=== PATIENT | male | born 1985 | race Caucasian/White ===

== ENCOUNTER 2024-03-06 05:31 | Emergency (ER) | payer OTHER, SELFPAY ==
--- NOTE | ~2024-03-06 | XR_ITS ---
Portable chest x-ray Comparison: None Clinical History: Chest pain Findings: Lungs are clear, without focal consolidation or pleural effusion. Cardiomediastinal silho uette is unremarkable. Bones and soft tissues are unremarkable. Impression: Normal chest. Reviewed, dictated and finalized at location . Impression: Normal chest.
--- NOTE | 2024-03-06 05:33 | ECG_ITS ---
[facility] [address] Test Date: 2024-03-06 Pat Name: Riccardo Woodward Department: Room: Gender: M Eligibility And Occupancy Interviewer: : 1985 Requested By: Aria Reynaga Order Number: [id number] Mohit MD: Alex Rouse M.D. Measurements Intervals [place] Rate: 85 P: 24 RI: 157 QRS: -15 QRSD: 88 T: 11 QT: 353 QTc: 421 Interpretive Statements SINUS RHYTHM POOR R-WAVE PROGRESSION BORDERLINE ECG No previous ECG available for comparison Electronically Signed On 03-06-2024 08:13:50 CDT by Alex Rouse M.D.
[2024-03-06 05:40] VITALS: BP 182/118; PULSE 86; RESP 20; TEMP 36.7; O2SAT 97; O2SAT 99
--- NOTE | 2024-03-06 05:43 | ED.CHESTPAIN ---
HPI - Chest Pain General Chief Complaint: Chest Pain Stated Complaint: chest pain, SOB Time Seen by Provider: 03/06/24 05:34 History of Present Illness HPI narrative: Patient presents here with chest pain that started initially last night with some shortness of breath, he thought that was just in digestion and this morning while going to get ready for work he had another episode. He slightly anxious and states that he has been stressed, denies any personal history of any medical issues, including hypertension, but does state that he has strong family history of heart disease, with his father side having multiple with heart attacks in their 50s and his mother side being even younger. No focal numbness or weakness Related Data Allergies Allergy/AdvReac Type Severity Reaction Status Date / Time No Known Allergies Allergy Verified 03/06/24 05:45 Review of Systems Review of Systems: All systems reviewed & are unremarkable except as noted in HPI and below Exam Narrative: EXAMINATION OF ORGAN SYSTEMS/BODY AREAS: Constitutional: Vital signs per nursing GENERAL:[No acute distress, non-toxic appearing.] HEAD: Normal with no signs of head trauma. EYES: EOMI, conjunctiva normal ENT: Hearing grossly intact LUNGS: Nonlabored breathing. Clear to auscultation bilaterally HEART: [Regular rate and rhythm] ABD: [Soft], [nontender to palpation] EXT: Normal range of motion SKIN: [No rashes or lesions.] NEURO: [Alert and oriented x 3. No gross focal sensory or strength deficits.] PSYCH: Slightly anxious affect Course Vital Signs Vital signs: Vital Signs Temperature 98.1 F 03/06/24 05:40 Pulse Rate 86 03/06/24 05:40 Respiratory Rate 20 03/06/24 05:40 Blood Pressure 182/118 H 03/06/24 05:40 Pulse Oximetry 97 03/06/24 05:40 Oxygen Delivery Room Air 03/06/24 05:40 Temperature 98.1 F 03/06/24 05:40 Pulse Rate 86 03/06/24 05:40 Respiratory Rate 20 03/06/24 05:40 Blood Pressure 182/118 H 03/06/24 05:40 Pulse Oximetry 100 03/06/24 05:46 Oxygen Delivery Room Air 03/06/24 05:46 MDM - Chest Pain MDM Narrative Medical decision making narrative: ED COURSE AND MEDICAL DECISION MAKIN-year-old male presenting with chest pain. EKG done in triage negative for acute ischemic changes. Cardiac workup is initiated. EKG: Performed in triage and interpreted by me. Normal sinus rhythm. Rate 85. Normal axis. AL normal. QRS duration normal. QTc normal. No pathologic Q waves. No ST segment elevation or depression to suggest acute ischemia. No RV strain pattern. HEART score is 0 with no acute ischemic changes on EKG and negative troponin making ACS unlikely. Neegative PERC making PE unlikely. Presentation not consistent with dissection or aneurysm without radiation of pain or pulse deficits. CXR negative for mediastinal widening. No abdominal pain or signs of sepsis that would be concerning for esophageal perforation or mediastinitis. No cardiomegaly or JVD to suggest pericardial effusion/tamponade. His blood pressure was slightly elevated while he was here, although he has never seen a doctor for this, I feel this could be due to anxiety from being in the hospital, however I did let the patient know that he needs to follow up with primary care doctor should get this checked again and if it continues to be persistently high, that he will need to be started on blood pressure medications. Patient agreeable to this plan. On repeat evaluation just prior to discharge, the patient is no acute distress. I had a long discussion with the patient and with shared decision making, [he] is comfortable with outpatient management. [He] was given clear return instructions by myself in person as well as on discharge paperwork. Procedures: Pulse oximetry interpretation - not hypoxic. EKG interpretation. Review of medical records. Lab Data 03/06/24 05:47 03/06/24 05:47 Labs: Lab Results
[2024-03-06 05:44] VITALS: BP 182/118; PULSE 91; RESP 16; O2SAT 99
[2024-03-06 05:46] VITALS: O2SAT 100
[2024-03-06 05:57] LABS: Basophils Absolute Auto 0.1 K/mm3 (0.0-0.1); Basophils Percent Auto 0.9 % (0.2-1.2); Eosinophils Absolute Auto 0.3 K/mm3 (0-0.3); Eosinophils Percent Auto 3.3 % (0-4.4); Hematocrit 46.7 % (42.0-52.0); Hemoglobin 16.6 g/dL (14.0-18.0); Immature Granulocyte Absolute 0.02 K/mm3 (0.00-0.031); Immature Granulocyte Percent A 0.3 % (0-0.5); Lymphocytes Absolute Auto 2.03 K/mm3 (0.9-3.2); Lymphocytes Percent Auto 27.2 % (18.3-44.2); Mean Corpuscular HGB Conc 35.5 g/dl (32-36); Mean Corpuscular Hemoglobin 29.5 pg (26-34); Mean Corpuscular Volume 83.1 fl (80-100); Mean Platelet Volume 11.2 fl (7.4-10.4); Monocytes Absolute Auto 0.6 K/mm3 (0.1-0.6); Monocytes Percent Auto 8.6 % (2.6-8.5); Neutrophils Absolute Auto 4.5 K/mm3 (1.3-6.7); Neutrophils Percent Auto 59.7 % (45.5-73.1); Platelet Count Result 243 k/mm3 (150-375); Red Blood Count 5.62 M/mm3 (4.6-6.20); White Blood Count 7.5 K/mm3 (4.5-10.0)
[2024-03-06 06:02] VITALS: BP 156/104; PULSE 74; RESP 17; O2SAT 97
[2024-03-06 06:06] LABS: Alanine Aminotransferase 29 U/L (6-50); Albumin Level 4.5 g/dL (3.5-5.1); Alkaline Phosphatase 76 U/L (38-126); Anion Gap 9 mmol/L (4-12); Aspartate Amino Transferase 24 U/L (17-59); Bilirubin,Total 0.8 mg/dL (0.2-1.3); Blood Urea Nitrogen 14 mg/dL (9-20); Carbon Dioxide 24 mmol/L (22-30); Chloride 103 mmol/L (98-107); Estimated CRCL calculation 145 ml/min; Estimated Glomerular Filt Rate > 60; Glucose 328 mg/dL (65-110); Potassium 3.8 mmol/L (3.4-5.0); Sodium 136 mmol/L (137-145)
[2024-03-06 06:17] VITALS: BP 151/104; PULSE 76; RESP 21; O2SAT 98
[2024-03-06 06:17] LABS: Troponin I < 0.012 ng/mL (0.000-0.034)
[2024-03-06 06:32] VITALS: BP 161/102; PULSE 66; RESP 16; O2SAT 99
== END 2024-03-06 06:39 | disposition home or self-care (01) ==
PROVIDERS: Emergency Provider Emergency Medicine
DX: R07.9 Chest pain, unspecified (principal); R94.31 Abnormal electrocardiogram [ECG] [EKG]
CPT/HCPCS: 36415; 71045; 80053; 84484; 85025; 93005; 99284

== ENCOUNTER 2025-03-05 05:47 | Emergency (ER) | payer SELFPAY ==
[2025-03-05] VITALS (7 sets, daily range): BP systolic 158–162; BP diastolic 101–113; PULSE 91–109; RESP 12–23; TEMP 36.7; O2SAT 97–98
--- NOTE | ~2025-03-05 | CT_ITS ---
CT of the Abdomen and Pelvis: Indication: Abdominal pain Technique: 2.5 mm axial scans were obtained through the abdomen and pelvis following intravenous adm inistration of 100 cc of Omnipaque 350. Dose reduction technique was used on this scan by utilizing a utomated exposure control and iterative reconstruction technique. The dose-length product (DLP) was 1 372.36 mGy-cm. Findings: Scans through the lung bases are unremarkable. The liver, spleen, pancreas, gallbladder, adrenals and kidneys are within normal limits. No evidence of aortic aneurysm. No lymphadenopathy. No bowel obstruction or bowel wall thickening. There is no evidence to suggest acute appendicitis. Images through the pelvis were performed. Urinary bladder unremarkable. No pelvic mass seen. No ascit es. Impression: No significant abnormalities seen. Reviewed, dictated and finalized at [facility]. Impression: No significant abnormalities seen.
--- OUTSIDE RECORDS SUMMARY | 2025-03-05 05:49 | XMS_ITS | Referral Summary ---
Author Organization [facility] Address [address] [place] [id number] Care Team Providers Care Clarity Specialists Name Role Phone No, Physician Primary Care Provider Allergies No known active allergies Social History Tobacco Use Types Packs/Day Years Used Date Smoking Tobacco: Never Assessed Personal Safety Answer Date Recorded Have you ever been in or are you currently in a harmful physical or emotional relationship or is someone making you feel afraid or unsafe? 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 Gender Identity Not on file Sexual Orientation Not on file Last Filed Vital Signs Vital Sign Reading Time Taken Comments Blood Pressure 176/110 11/23/2024 11:05 AM CANAL BOAT CAPTAIN Pulse 72 11/23/2024 11:05 AM CANAL BOAT CAPTAIN Temperature 36.3 C (97.3 F) 11/23/2024 6:42 AM CANAL BOAT CAPTAIN Respiratory Rate 18 11/23/2024 11:0 5 AM CANAL BOAT CAPTAIN Oxygen Saturation 96% 11/23/2024 11: 05 AM CANAL BOAT CAPTAIN Inhaled Oxygen Concentration - - Weight 121.2 kg (267 lb 4.8 oz) 11/23/2024 6:42 AM CANAL BOAT CAPTAIN Height 180.3 cm (5' 11) 11/23/2024 6:42 AM CANAL BOAT CAPTAIN Body Mass Index 37.28 11/23/2024 6:42 AM CANAL BOAT CAPTAIN Plan of Treatment Not on file Insurance WORKERS COMPENSATION GENERIC COMPENSATION [facility] [employer] [address] * Guarantor: [employer] Account Type Relation to Patient Date of Phone Billing Address Workers [employer] [address] [place] [id number] [employer] GENERIC Care Teams Clarity Specialists Relationship Specialty Start Date End Date No, Physician PCP - General 11/23/24
--- OUTSIDE RECORDS SUMMARY | 2025-03-05 05:49 | XMS_ITS | Clinical Summary ---
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 Gender Identity Not on file Sexual Orientation Not on file Last Filed Vital Signs Vital Sign Reading Time Taken Comments Blood Pressure 176/110 11/23/2024 11:05 AM HEAD PASTRY CHEF Pulse 72 11/23/2024 11:05 AM HEAD PASTRY CHEF Temperature 36.3 C (97.3 F) 11/23/2024 6:42 AM HEAD PASTRY CHEF Respiratory Rate 18 11/23/2024 11:0 5 AM HEAD PASTRY CHEF Oxygen Saturation 96% 11/23/2024 11: 05 AM HEAD PASTRY CHEF Inhaled Oxygen Concentration - - Weight 121.2 kg (267 lb 4.8 oz) 11/23/2024 6:42 AM HEAD PASTRY CHEF Height 180.3 cm (5' 11) 11/23/2024 6:42 AM HEAD PASTRY CHEF Body Mass Index 37.28 11/23/2024 6:42 AM HEAD PASTRY CHEF Plan of Treatment Health Maintenance Due Date Last Done Comments Depression Screening 1985 Hepatitis C Screening 1985 DTaP/Tdap/Td Vaccine (1 - Tdap) 1998 Varicella Vaccines (1 of 2 - 13+ 2-dose series) 2000 Hepatitis B Screening 2005 Regular Well Visit/Exam 18-64 2005 Influenza Vaccine (Season Ended) 2025 HPV Vaccines Aged Out No longer eligi ble based on patient's age to complete this topic Pneumococcal vaccine <65 Aged Out No longer eligible based on patient's age to complete this topic Insurance WORKERS COMPENSATION GENERIC COMPENSATION [facility] [employer] [place] [employer] * Guarantor: [employer] Account Type Relation to Patient Date of Phone Billing Address [employer] [address] [place] [address] [employer] Care Teams Information Systems Security Specialist Relationship Specialty Start Date End Date No, Physician PCP - General 11/23/24
[2025-03-05 06:11] LABS: Basophils Absolute Auto 0.1 K/mm3 (0.0-0.1); Basophils Percent Auto 0.7 % (0.2-1.2); Eosinophils Absolute Auto 0.2 K/mm3 (0-0.3); Eosinophils Percent Auto 2.6 % (0-4.4); Hematocrit 47.1 % (42.0-52.0); Hemoglobin 16.3 g/dL (14.0-18.0); Immature Granulocyte Absolute 0.03 K/mm3 (0.00-0.031); Immature Granulocyte Percent A 0.4 % (0-0.5); Lymphocytes Absolute Auto 2.11 K/mm3 (0.9-3.2); Lymphocytes Percent Auto 25.9 % (18.3-44.2); Mean Corpuscular HGB Conc 34.6 g/dl (32-36); Mean Corpuscular Hemoglobin 29.1 pg (26-34); Mean Corpuscular Volume 84.1 fl (80-100); Monocytes Absolute Auto 0.7 K/mm3 (0.1-0.6); Monocytes Percent Auto 8.2 % (2.6-8.5); Neutrophils Absolute Auto 5.1 K/mm3 (1.3-6.7); Neutrophils Percent Auto 62.2 % (45.5-73.1); Platelet Count Result 270 k/mm3 (150-375); Red Cell Distribution Width 12.4 % (11.5-14.5); White Blood Count 8.1 K/mm3 (4.5-10.0)
[2025-03-05 06:19] LABS: Add Urine Microscopic? YES; Appearance Urine Clear (Clear); Bacteria Urine None Seen /hpf; Bilirubin Urine Negative (Negative); Blood Urine Negative (Negative); Color Urine Yellow (Yellow); Glucose Urine UA 3+ mg/dL (Negative); Ketones Urine Negative (Negative); Leukocyte Esterase Ur Negative LEU/UL (Negative); Nitrate Urine Negative (Negative); Non Pathogenic Casts 0-2; Protein Urine 1+ mg/dL (Negative); RBC Urine 0-2 /hpf (0-2); Specific Grav Ur 1.043 (1.001-1.035); Squamous Epithelial Cell Urine None Seen /hpf (Few); Urobilinogen Urine 0.2 mg/dL (<2.0); WBC Urine 0-5 /hpf (0-3); pH Urine 5.5 (5.0-9.0)
[2025-03-05 06:24] LABS: Alanine Aminotransferase 24 U/L (6-50); Albumin Level 4.5 g/dL (3.5-5.1); Alkaline Phosphatase 72 U/L (38-126); Anion Gap 10 mmol/L (4-12); Aspartate Amino Transferase 25 U/L (17-59); Bilirubin,Total 0.6 mg/dL (0.2-1.3); Blood Urea Nitrogen 14 mg/dL (9-20); Carbon Dioxide 26 mmol/L (22-30); Chloride 101 mmol/L (98-107); Estimated CRCL calculation 164 ml/min; Estimated Glomerular Filt Rate > 60; Glucose 408 mg/dL (65-110); Lipase 151 U/L (23-300); Potassium 4.1 mmol/L (3.4-5.0); Sodium 137 mmol/L (137-145); Total Protein 7.6 g/dL (6.3-8.2)
--- NOTE | 2025-03-05 06:46 | ED_ITS ---
HPI - Abdominal Pain General Chief Complaint: Abdominal Pain <Nabeel Hassan MD - Last Filed: 03/05/25 07:03> Stated Complaint: fever, vomiting, right abd pain <Nabeel Hassan MD - Last Filed: 03/05/25 07:03> Time Seen by Provider: 03/05/25 06:43 <Nabeel Hassan MD - Last Filed: 03/05/25 07:03> History of Present Illness HPI narrative: Patient is a 39-year-old male who presents to the emergency department this evening complaining of right lower quadrant abdominal pain. Patient states that the pain started on Wednesday and states that for the past 2 days it was constant throughout the day. Patient states that today he finally decided to come in to get evaluated. Patient states that today was the 1st day that he felt some relief of the pain. States that it has dropped to a 3/10. Patient is resting comfortably does not appear to be in distress. Denies any history of kidney stones, states that he still has his appendix. Denies any pain radiation, states that it just stays in the right lower quadrant. Patient admits that he has been having bowel movements. Patient states that he did spike a fever today although he is not febrile in the emergency department. Denies any nausea or vomiting, any constipation or diarrhea. No additional symptoms or concerns at this time. <Nabeel Hassan MD - Last Filed: 03/05/25 07:03> Related Data Allergies/Adverse Reactions: Allergies Allergy/AdvReac Type Severity Reaction Status Date / Time No Known Allergies Allergy Verified 03/05/25 05:57 <Nabeel Hassan MD - Last Filed: 03/05/25 07:03> Review of Systems 2 Review of Systems: All systems are reviewed and are negative unless stated otherwise in the HPI. <Nabeel Hassan MD - Last Filed: 03/05/25 07:03> Exam 2 Narrative: General: Alert, awake, afebrile, in no acute distress. HEENT: PERRL, no rhinorrhea, no post nasal drip, oropharynx clear. Neck: Trachea midline, no JVD, no lymphadenopathy. Cardiovascular: Regular rate and rhythm, no murmurs, rubs or gallops, no peripheral edema. Respiratory: Clear to auscultation bilaterally, no tachypnea, no wheezing, no rhonchi, no rubs, no respiratory distress. Abdomen: Soft, nontender, nondistended, no rebound, no guarding, no peritoneal signs. Musculoskeletal: No joint swelling or deformity, normal muscle tone. Skin: No rashes or petechia, no signs of infection. Psychiatric: Alert and oriented, normal behavior and judgment for situation. Neurological: Alert and oriented to person, place, and time. Follows all commands. No focal deficits, speech is clear and fluent. <Nabeel Hassan MD - Last Filed: 03/05/25 07:03> Course Reevaluation(s) Reevaluation #1: PAtient reports he feels better. His labs are unremarkable other than hyperglycemia. HE has not history of DM . I discussed he will need to start medication and follow up with PCP. I Will start metformin and he was given return precautions. <Minerva Coe MD - Last Filed: 03/05/25 08:03> Date: 03/05/25 <Minerva Coe MD - Last Filed: 03/05/25 08:03> Time: 07:55 <Minerva Coe MD - Last Filed: 03/05/25 08:03> Vital Signs Vital signs: Vital Signs Temperature 98.0 F 03/05/25 05:56 Pulse Rate 109 H 03/05/25 05:56 Respiratory Rate 20 03/05/25 05:56 Blood Pressure 162/113 H 03/05/25 05:56 Pulse Oximetry 97 03/05/25 05:56 Temperature 98.0 F 03/05/25 05:56 Pulse Rate 91 03/05/25 07:00 Respiratory Rate 23 H 03/05/25 07:00 Blood Pressure 162/113 H 03/05/25 05:56 Pulse Oximetry 97 03/05/25 07:00 <Nabeel Hassan MD - Last Filed: 03/05/25 07:03> Vital Signs Temperature 98.0 F 03/05/25 05:56 Pulse Rate 109 H 03/05/25 05:56 Respiratory Rate 20 03/05/25 05:56 Blood Pressure 162/113 H 03/05/25 05:56 Pulse Oximetry 97 03/05/25 05:56 Temperature 98.0 F 03/05/25 05:56 Pulse Rate 91 03/05/25 07:00 Respiratory Rate 23 H 03/05/25 07:00 Blood Pressure 162/113 H 03/05/25 05:56 Pulse Oximetry 97 03/05/25 07:00 <Mienrva Coe MD - Last Filed: 03/05/25 08:03> MDM - Abdominal Pain MDM Narrative Medical decision making narrative: The patient was evaluated by myself in the emergency department. History is obtained from patient who is an independent historian and physical exam was performed. External medical records were reviewed at this time. IV was established and pertinent tests were ordered. Patient was administered 1 L IV fluid bolus with normal saline, 2 mg of IV morphine for pain and 4 mg IV Zofran for nausea. Laboratory results obtained revealing a glucose of 408 otherwise no acute process. Urinalysis unremarkable. Imaging studies obtained included CT abdomen pelvis with IV contrast which is currently pending. Differential diagnosis considerations include appendicitis, diverticulitis, cholecystitis, nephrolithiasis, urinary tract infection. Comorbidities impacting this visit include none. I have evaluated and discussed social determinants of health with the patient that could potentially impact subsequent diagnosis and treatment plans. Patient was signed out to AM ED physician pending CT scan. <Nabeel Hassan MD - Last Filed: 03/05/25 07:03> Lab Data Result diagrams: 03/05/25 06:01 03/05/25 06:01 <Nabeel Hassan MD - Last Filed: 03/05/25 07:03> Labs: Lab Results 03/05/25 Range/Units 06:01 WBC 8.1 (4.5-10.0) K/mm3 RBC 5.60 (4.6-6.20) M/mm3 Hgb 16.3 (14.0-18.0) g/dL Hct 47.1 (42.0-52.0) % MCV 84.1 (80-100) fl MCH 29.1 (26-34) pg MCHC 34.6 (32-36) g/dl RDW 12.4 (11.5-14.5) % Plt Count 270 (150-375) k/mm3 MPV 11.0 H (7.4-10.4) fl Immature Gran % (Auto) 0.4 (0-0.5) % Neut % (Auto) 62.2 (45.5-73.1) % Lymph % (Auto) 25.9 (18.3-44.2) % [place] % (Auto) 8.2 (2.6-8.5) % Eos % (Auto) 2.6 (0-4.4) % Baso % (Auto) 0.7 (0.2-1.2) % Lymph # (Auto) 2.11 (0.9-3.2) K/mm3 [place] # (Auto) 0.7 H (0.1-0.6) K/mm3 Eos # (Auto) 0.2 (0-0.3) K/mm3 Baso # (Auto) 0.1 (0.0-0.1) K/mm3 Abs Immat Gran (auto) 0.03 (0.00-0.031) K/mm3 Absolute Neuts (auto) 5.1 (1.3-6.7) K/mm3 Absolute Nucleated RBC 0.000 (0.0-0.012) K/mm3 Nucleated RBC % 0.0 (0.0-0.2) % Sodium 137 (137-145) mmol/L Potassium 4.1 (3.4-5.0) mmol/L Chloride 101 (98-107) mmol/L Carbon Dioxide 26 (22-30) mmol/L Anion Gap 10 (4-12) mmol/L BUN 14 (9-20) mg/dL Creatinine 0.68 L (0.7-1.3) mg/dL Estim Creat Clear Calc 164 ml/min Estimated GFR > 60 (59 - ) Glucose 408 H (65-110) mg/dL Calcium 9.0 (8.4-10.2) mg/dL Magnesium 2.0 (1.6-2.3) mg/dL Total Bilirubin 0.6 (0.2-1.3) mg/dL AST 25 (17-59) U/L ALT 24 (6-50) U/L Alkaline Phosphatase 72 (38-126) U/L Total Protein 7.6 (6.3-8.2) g/dL Albumin 4.5 (3.5-5.1) g/dL Lipase 151 (23-300) U/L Urine Color Yellow (Yellow) Urine Appearance Clear (Clear) Urine pH 5.5 (5.0-9.0) Ur Specific [place] 1.043 H (1.001-1.035) Urine Protein 1+ H (Negative) mg/dL Urine Glucose (UA) 3+ H (Negative) mg/dL Urine Ketones Negative (Negative) mg/dL Ur Blood (Man) Negative (Negative) Urine Nitrate Negative (Negative) Urine Bilirubin Negative (Negative) Urine Urobilinogen 0.2 (<2.0) mg/dL Leukocyte Esterase Rfl Negative (Negative) TRACIE/UL Urine RBC 0-2 (0-2) /hpf Urine WBC 0-5 (0-3) /hpf Ur Squamous Epith Cells None seen (Few) /hpf Urine Bacteria None seen /hpf Urine Casts 0-2 <Nabeel Hassan MD - Last Filed: 03/05/25 07:03> Lab Results 03/05/25 Range/Units 06:01 WBC 8.1 (4.5-10.0) K/mm3 RBC 5.60 (4.6-6.20) M/mm3 Hgb 16.3 (14.0-18.0) g/dL Hct 47.1 (42.0-52.0) % MCV 84.1 (80-100) fl MCH 29.1 (26-34) pg MCHC 34.6 (32-36) g/dl RDW 12.4 (11.5-14.5) % Plt Count 270 (150-375) k/mm3 MPV 11.0 H (7.4-10.4) fl Immature Gran % (Auto) 0.4 (0-0.5) % Neut % (Auto) 62.2 (45.5-73.1) % Lymph % (Auto) 25.9 (18.3-44.2) % [place] % (Auto) 8.2 (2.6-8.5) % Eos % (Auto) 2.6 (0-4.4) % Baso % (Auto) 0.7 (0.2-1.2) % Lymph # (Auto) 2.11 (0.9-3.2) K/mm3 [place] # (Auto) 0.7 H (0.1-0.6) K/mm3 Eos # (Auto) 0.2 (0-0.3) K/mm3 Baso # (Auto) 0.1 (0.0-0.1) K/mm3 Abs Immat Gran (auto) 0.03 (0.00-0.031) K/mm3 Absolute Neuts (auto) 5.1 (1.3-6.7) K/mm3 Absolute Nucleated RBC 0.000 (0.0-0.012) K/mm3 Nucleated RBC % 0.0 (0.0-0.2) % Sodium 137 (137-145) mmol/L Potassium 4.1 (3.4-5.0) mmol/L Chloride 101 (98-107) mmol/L Carbon Dioxide 26 (22-30) mmol/L Anion Gap 10 (4-12) mmol/L BUN 14 (9-20) mg/dL Creatinine 0.68 L (0.7-1.3) mg/dL Estim Creat Clear Calc 164 ml/min Estimated GFR > 60 (59 - ) Glucose 408 H (65-110) mg/dL Calcium 9.0 (8.4-10.2) mg/dL Magnesium 2.0 (1.6-2.3) mg/dL Total Bilirubin 0.6 (0.2-1.3) mg/dL AST 25 (17-59) U/L ALT 24 (6-50) U/L Alkaline Phosphatase 72 (38-126) U/L Total Protein 7.6 (6.3-8.2) g/dL Albumin 4.5 (3.5-5.1) g/dL Lipase 151 (23-300) U/L Urine Color Yellow (Yellow) Urine Appearance Clear (Clear) Urine pH 5.5 (5.0-9.0) Ur Specific [place] 1.043 H (1.001-1.035) Urine Protein 1+ H (Negative) mg/dL Urine Glucose (UA) 3+ H (Negative) mg/dL Urine Ketones Negative (Negative) mg/dL Ur Blood (Man) Negative (Negative) Urine Nitrate Negative (Negative) Urine Bilirubin Negative (Negative) Urine Urobilinogen 0.2 (<2.0) mg/dL Leukocyte Esterase Rfl Negative (Negative) TRACIE/UL Urine RBC 0-2 (0-2) /hpf Urine WBC 0-5 (0-3) /hpf Ur Squamous Epith Cells None seen (Few) /hpf Urine Bacteria None seen /hpf Urine Casts 0-2 <Minerva Coe MD - Last Filed: 03/05/25 08:03> Imaging Data Radiologist's impression: ITS Impressions Abdomen/Pelvis CT 03/05/25 07:36 Impression: No significant abnormalities seen. <Nabeel Hassan MD - Last Filed: 03/05/25 07:03> ITS Impressions Abdomen/Pelvis CT 03/05/25 07:36 Impression: No significant abnormalities seen. <Minerva Coe MD - Last Filed: 03/05/25 08:03> Discharge Plan Discharge Clinical Impression: Abdominal pain, RLQ, Hyperglycemia <Nabeel Hassan MD - Last Filed: 03/05/25 07:03> Patient Disposition: Home <Nabeel Hassan MD - Last Filed: 03/05/25 07:03> Condition: Improved <Nabeel Hassan MD - Last Filed: 03/05/25 07:03> Instructions: Antibiotic Form, Acute Abdominal Pain (ED), Diabetic Hyperglycemia (ED) <Nabeel Hassan MD - Last Filed: 03/05/25 07:03> Additional Instructions: Today you were found to have elevated blood sugar. Please watch your diet. I recommend that you get established with primary care provider as soon as possible. If your symptoms worsen return to ER <Nabeel Hassan MD - Last Filed: 03/05/25 07:03> Patient Language: Bahraini <Nabeel Hassan MD - Last Filed: 03/05/25 07:03> Prescriptions: New metformin 500 mg tablet 500 mg PO BID Qty: 30 0RF ondansetron 4 mg tablet,disintegrating 4 mg PO Q8H PRN (Reason: nausea and vomiting) Qty: 10 0RF <Nabeel Hassan MD - Last Filed: 03/05/25 07:03> Follow-up/Referrals: Vinh Allen MD [Physician] - PHYSICIAN,METALIZING MACHINE OPERATOR [Primary Care Provider] - <Nabeel Hassan MD - Last Filed: 03/05/25 07:03> Time of Disposition: 06:57 <Nabeel Hassan MD - Last Filed: 03/05/25 07:03> 06:57 <Minerva Coe MD - Last Filed: 03/05/25 08:03>
[2025-03-05] MEDS: SODIUM CHLORIDE 0.9% IV 1,000 ML 999 ML IV CONT (06:55)
--- OUTSIDE RECORDS SUMMARY | 2025-03-05 07:04 | XMS_ITS | Clinical Summary ---
Author Organization [facility] Address [address] [place] [phone] Care Team Providers Care Train Engineer Name Role Phone No, Physician Primary Care Provider [phone] Allergies No known active allergies Social History [...] on file Legal Sex Male 4:27 PM LEAD DATA ARCHITECT Gender Identity Not on file Sexual Orientation Not on file Last Filed Vital Signs Vital Sign Reading Time Taken Comments Blood Pressure 176/110 11/23/2024 11:05 AM LEAD DATA ARCHITECT Pulse 72 11/23/2024 11:05 AM LEAD DATA ARCHITECT Temperature 36.3 C (97.3 F) 11/23/2024 6:42 AM LEAD DATA ARCHITECT Respiratory Rate 18 11/23/2024 11:0 5 AM LEAD DATA ARCHITECT Oxygen Saturation 96% 11/23/2024 11: 05 AM LEAD DATA ARCHITECT Inhaled Oxygen Concentration - - Weight 121.2 kg (267 lb 4.8 oz) 11/23/2024 6:42 AM LEAD DATA ARCHITECT Height 180.3 cm (5' 11) 11/23/2024 6:42 AM LEAD DATA ARCHITECT Body Mass Index 37.28 11/23/2024 6:42 AM LEAD DATA ARCHITECT Plan of Treatment Health Maintenance Due Date [...] this topic Insurance WORKERS COMPENSATION GENERIC COMPENSATION [facility] [employer] [place] [employer] * Guarantor: [employer] Account Type Relation to Patient Date of Phone Billing Address [employer] [address] [place] [address] WORKERS [employer] GENERIC Care Teams Train Engineer Relationship Specialty Start Date End Date No, Physician PCP - General 11/23/24
--- OUTSIDE RECORDS SUMMARY | 2025-03-05 07:04 | XMS_ITS | Referral Summary ---
Author Organization [facility] Address [address] [place] [phone] Care Team Providers Care Cardiac Cath Tech Name Role Phone No, Physician Primary Care Provider [phone] Allergies No known active allergies Social History [...] on file Legal Sex Male 4:27 PM GEM TECHNICIAN Gender Identity Not on file Sexual Orientation Not on file Last Filed Vital Signs Vital Sign Reading Time Taken Comments Blood Pressure 176/110 11/23/2024 11:05 AM GEM TECHNICIAN Pulse 72 11/23/2024 11:05 AM GEM TECHNICIAN Temperature 36.3 C (97.3 F) 11/23/2024 6:42 AM GEM TECHNICIAN Respiratory Rate 18 11/23/2024 11:0 5 AM GEM TECHNICIAN Oxygen Saturation 96% 11/23/2024 11: 05 AM GEM TECHNICIAN Inhaled Oxygen Concentration - - Weight 121.2 kg (267 lb 4.8 oz) 11/23/2024 6:42 AM GEM TECHNICIAN Height 180.3 cm (5' 11) 11/23/2024 6:42 AM GEM TECHNICIAN Body Mass Index 37.28 11/23/2024 6:42 AM GEM TECHNICIAN Plan of Treatment Not on file Insurance WORKERS COMPENSATION GENERIC COMPENSATION [facility] [employer] [place] [employer] * Guarantor: [employer] Account Type Relation to Patient Date of Phone Billing Address [employer] [address] [place] [id number] [employer] Care Teams Cardiac Cath Tech Relationship Specialty Start Date End Date No, Physician PCP - General 11/23/24
--- NOTE | 2025-03-05 07:57 | PC.NURSE ---
Patient declined morphine and zofran. States, this is the best I've felt in days.
== END 2025-03-05 08:22 | disposition home or self-care (01) ==
PROVIDERS: Emergency Provider Emergency Medicine
DX: R10.31 Right lower quadrant pain (principal); R73.9 Hyperglycemia, unspecified
CPT/HCPCS: 36415; 74177; 80053; 81001; 83690; 83735; 85025; 96360; 99284; J7030; Q9967